=== PATIENT | male | born 1930 | race Caucasian/White ===

== ENCOUNTER 2019-07-28 04:52 | Emergency (ER) | payer MEDICARE, BC, OTHER ==
[2019-07-28] MEDS ORDERED: Sodium Chloride 0.9% 2.5 ML Syringe FLUSH PRN (04:53)
[2019-07-28] MEDS ORDERED: Sodium Chloride 0.9% 10 ML Syringe FLUSH PRN (04:53)
--- NOTE | 2019-07-28 05:10 | EDM.PDOC ---
ED HPI GENERAL MEDICAL PROBLEM - General Chief Complaint: Chest Pain Stated Complaint: CHEST PAIN Time Seen by Provider: 07/28/19 04:53 - History of Present Illness INITIAL COMMENTS - FREE TEXT/NARRATIVE: HISTORY AND PHYSICAL: History of present illness: The patient is an 88-year-old male with a history of insulin requiring diabetes who lives in [place] and is here traveling and says that he had a CABG 20 years ago and has had no cardiac intervention or evaluation since that time and says that he [facility] his [facility] but does not see a provider there and who presents this morning with complaints of midsternal chest pain that radiates to his back that woke him from sleep at 1 AM, approximally 4 hours ago. He said initially he was asleep and awoke him and it was an 8/10 and he describes it just as a "pain". He had no associated abdominal pain shortness of breath diaphoresis nausea vomiting or lightheadedness. He does not radiate to his arms or jaw .The patient took 7 or 8 baby aspirin at home but no other pain medications and he currently is chest pain-free. He tells me that he has had an episode of similar chest pain at least once a week for the last several months but did not seek treatment in either an emergency room or with his provider in the [facility]. He says that it would usually last about 1 hour to several hours and the only reason why he came in this morning was because he is getting tired of this happening but there is no difference in the location character or duration of the pain. The patient says that the pain will happen sometimes with activities and sometimes at rest and when he is sleeping. He says that he has had no pulmonary symptoms such as shortness of breath or upper respiratory infections and no recent fevers or chills. The patient has been eating and drinking normally and has no other systemic complaints. The patient does tell me on a separate conversations that he has a small bottle of pills which appeared to be nitroglycerin that his doctor gave him that he should take if he ever has chest pain. He says that these are at home in [place] and he never takes them. Review of systems: As per history of present illness and below otherwise all systems reviewed and negative. Past medical history: As per history of present illness and as reviewed below otherwise noncontributory. Surgical history: As per history of present illness and as reviewed below otherwise noncontributory. Social history: No reported history of drug or alcohol abuse. Family history: As per history of present illness and as reviewed below otherwise noncontributory. Physical exam: General: Well-developed well-nourished man who is nontoxic and vital signs are noted by me. He ambulated into the ED without distress HEENT: Atraumatic, normocephalic, pupils reactive, negative for conjunctival pallor or scleral icterus, mucous membranes moist, throat clear, neck supple, nontender, trachea midline. Lungs: Clear to auscultation, breath sounds equal bilaterally, chest nontender. Heart: S1S2, regular in rhythm no overt murmurs, negative for clicks, rubs, or JVD. Abdomen: Soft, nondistended, nontender. Negative for masses or hepatosplenomegaly. Negative for costovertebral tenderness. Pelvis: Stable nontender. Genitourinary: Deferred. Rectal: Deferred. Extremities: Atraumatic, negative for cords or calf pain. Neurovascular unremarkable. No pedal edema or leg asymmetry Neuro: Awake, alert, oriented. Cranial nerves II through XII unremarkable. Cerebellum unremarkable. Motor and sensory unremarkable throughout. Exam nonfocal. Diagnostics: EKG 2 chest x-ray CBC CMP INR troponin serum ketones UA with reflex Therapeutics: IV O2 monitor, patient took 7-8 baby aspirin prior to arrival, Nitropaste heparin per none STEMI protocol gentle IV fluids, insulin subcutaneous and insulin drip 0508: EKG was discussed with Dr. Kaur the cash processing specialist bridal consultant at [facility] and the EKG was photographed and sent to this provider for his review. He agrees that there is diffuse ST segment depression consistent with ischemia and/or LVH with strain and he states that as long as the patient is chest pain- free he would proceed with Nitropaste heparinization with bolus and drip and transfer to his location as the patient needs to be admitted and studied. We will continue to follow the patient's workup and arrange for transfer and I will discuss this case with the ER at [facility]. The patient and grandson at bedside are aware of these conversations. The patient is aware that he will be receiving heparin and he denies any blood in his stools dark tarry stools blood in his urine bleeding gums or nosebleeds. The patient of his blood sugar 749 and he says that he last checked his blood sugar yesterday and it was around 130. He is aware of the elevation as is the grandson at bedside and that we will give subcutaneous insulin and started insulin drip. His chemistry CO2 was 14 and his anion gap is 23 and serum ketones are small. I will also give some IV fluids 0550: Case was discussed with Dr. Dumont in the ER at [facility] and he agrees to start an insulin drip and we will now fly the patient as he has multiple levels of problems with gross elevation of his troponin and his blood sugars. Dr. Kaur was also notified of the troponin and agrees that he needs to be studied and will likely need medical management prior to this due to his renal insufficiency and DKA. Again the patient and grandson at bedside have been notified of these developments and the change in plan to now be flown to [facility] rather than go by EMS ground. We are currently evaluating flight status due to weather and we will keep the family and patient notified. A second EKG was performed which shows no changes from his prior and he is still chest pain-free. Critical care time excluding procedures:35min Impression: Chest pain, anginal equivalent with non-STEMI WI; DKA, renal insufficiency Definitive disposition and diagnosis as appropriate pending reevaluation and review of above. - Related Data Allergies Allergy/AdvReac Type Severity Reaction Status Date / Time No Known Allergies Allergy Verified 07/28/19 05:07 Home Meds: Home Meds Insulin NPH Hum/Reg Insulin Hm [Novolin 70-30 Flexpen] 30 units SQ BID 07/28/19 [History] ED ROS GENERAL - Review of Systems Review Of Systems: ROS reveals no pertinent complaints other than HPI. ED EXAM, GENERAL - Physical Exam Exam: See Below (See dictation) Course - Vital Signs Last Recorded V/S: Last Vital Signs Temp 36.1 C 07/28/19 04:52 Pulse 84 07/28/19 05:28 Resp 18 07/28/19 05:28 BP 125/58 L 07/28/19 05:28 Pulse Ox 97 07/28/19 05:28 - Orders/Labs/Meds Orders: Active Orders 24 hr Category Date Time Status Cardiac Monitoring [RC] . DIRECTED Care 07/28/19 04:53 Active Communication Order [RC] STAT Care 07/28/19 05:30 Active EKG Documentation Completion [RC] STAT Care 07/28/19 04:53 Active EKG Documentation Completion [RC] STAT Care 07/28/19 05:46 Active Oxygen Therapy, ED [RC] ASDIRECTED Care 07/28/19 04:53 Active Pulse Oximetry [RC] ASDIRECTED Care 07/28/19 04:53 Active UA RFX VICTOR MANUEL AND CULT IF INDIC [URIN] Stat Lab 07/28/19 05:45 Ordered Heparin Sod,Pork In 0.45% Nacl [Heparin-1/2Ns 25,000 Med 07/28/19 05:15 Active Units/500] 25,000 unit in 500 ml IV TITRATE Insulin Regular, Human [NovoLIN R] 100 unit Med 07/28/19 06:00 Active Sodium Chloride 0.9% [Normal Saline] 99 ml IV TITRATE Sodium Chloride 0.9% [Normal Saline] 1,000 ml Med 07/28/19 05:45 Active IV ASDIRECTED Sodium Chloride 0.9% [Saline Flush] Med 07/28/19 04:53 Active 10 ml FLUSH ASDIRECTED PRN Sodium Chloride 0.9% [Saline Flush] Med 07/28/19 04:53 Active 2.5 ml FLUSH ASDIRECTED PRN Saline Lock Insert [OM.PC] Stat Oth 07/28/19 04:53 Ordered Medication Orders Heparin Sodium/Sodium Chloride (Heparin-1/2ns 25,000 Units/500) 25,000 unit in 500 mls @ 16.8 mls/hr IV TITRATE AMAN; Protocol Last Admin: 07/28/19 05:26 Dose: 12 units/kg/hr, 16.8 mls/hr Sodium Chloride (Normal Saline) 1,000 mls @ 75 mls/hr IV ASDIRECTED AMAN Last Admin: 07/28/19 05:51 Dose: 75 mls/hr Insulin Human Regular 100 unit (/ Sodium Chloride) 100 mls @ 7 mls/hr IV TITRATE AMAN; Protocol Sodium Chloride (Saline Flush) 10 ml FLUSH ASDIRECTED PRN PRN Reason: Keep Vein Open Sodium Chloride (Saline Flush) 2.5 ml FLUSH ASDIRECTED PRN PRN Reason: Keep Vein Open Labs: Laboratory Tests 07/28/19 07/28/19 07/28/19 Range/Units 05:05 05:05 05:05 WBC 10.69 (4.0-11.0) K/uL RBC 4.10 L (4.50-5.90) M/uL Hgb 13.1 (13.0-17.0) g/dL Hct 39.2 (38.0-50.0) % MCV 95.6 (80.0-98.0) fL MCH 32.0 (27.0-32.0) pg MCHC 33.4 (31.0-37.0) g/dL RDW Std Deviation 46.2 (28.0-62.0) fl RDW Coeff of Jabier 13 (11.0-15.0) % Plt Count 250 (150-400) K/uL MPV 10.50 (7.40-12.00) fL Neut % (Auto) 77.5 (48.0-80.0) % Lymph % (Auto) 17.9 (16.0-40.0) % [place] % (Auto) 4.0 (0.0-15.0) % Eos % (Auto) 0.2 (0.0-7.0) % Baso % (Auto) 0.4 (0.0-1.5) % Neut # (Auto) 8.3 H (1.4-5.7) K/uL Lymph # (Auto) 1.9 (0.6-2.4) K/uL [place] # (Auto) 0.4 (0.0-0.8) K/uL Eos # (Auto) 0.0 (0.0-0.7) K/uL Baso # (Auto) 0.0 (0.0-0.1) K/uL Nucleated RBC % 0.0 /100WBC Nucleated RBCs # 0 K/uL INR 0.96 APTT (18.6-31.3) SEC Sodium 129 L (136-148) mmol/L Potassium 5.6 H (3.5-5.1) mmol/L Chloride 92 L (98-107) mmol/L Carbon Dioxide 14.1 L (21.0-32.0) mmol/L BUN 39 H (7.0-18.0) mg/dL Creatinine 2.3 H (0.8-1.3) mg/dL Est Cr Clr Drug Dosing TNP Estimated GFR (MDRD) 27.1 ml/min Glucose 749 H* (74-106) mg/dL Calcium 9.1 (8.5-10.1) mg/dL Total Bilirubin 1.0 (0.2-1.0) mg/dL AST 63 H (15-37) IU/L ALT 24 (14-63) IU/L Alkaline Phosphatase 131 H (46-116) U/L Troponin I 6.456 H* (0.000-0.056) ng/mL Total Protein 7.3 (6.4-8.2) g/dL Albumin 3.6 (3.4-5.0) g/dL Globulin 3.7 (2.6-4.0) g/dL Albumin/Globulin Ratio 1.0 (0.9-1.6) Ketones (NEG) 07/28/19 07/28/19 Range/Units 05:05 05:05 WBC (4.0-11.0) K/uL RBC (4.50-5.90) M/uL Hgb (13.0-17.0) g/dL Hct (38.0-50.0) % MCV (80.0-98.0) fL MCH (27.0-32.0) pg MCHC (31.0-37.0) g/dL RDW Std Deviation (28.0-62.0) fl RDW Coeff of Jabier (11.0-15.0) % Plt Count (150-400) K/uL MPV (7.40-12.00) fL Neut % (Auto) (48.0-80.0) % Lymph % (Auto) (16.0-40.0) % [place] % (Auto) (0.0-15.0) % Eos % (Auto) (0.0-7.0) % Baso % (Auto) (0.0-1.5) % Neut # (Auto) (1.4-5.7) K/uL Lymph # (Auto) (0.6-2.4) K/uL [place] # (Auto) (0.0-0.8) K/uL Eos # (Auto) (0.0-0.7) K/uL Baso # (Auto) (0.0-0.1) K/uL Nucleated RBC % /100WBC Nucleated RBCs # K/uL INR APTT 25.4 (18.6-31.3) SEC Sodium (136-148) mmol/L Potassium (3.5-5.1) mmol/L Chloride (98-107) mmol/L Carbon Dioxide (21.0-32.0) mmol/L BUN (7.0-18.0) mg/dL Creatinine (0.8-1.3) mg/dL Est Cr Clr Drug Dosing Estimated GFR (MDRD) ml/min Glucose (74-106) mg/dL Calcium (8.5-10.1) mg/dL Total Bilirubin (0.2-1.0) mg/dL AST (15-37) IU/L ALT (14-63) IU/L Alkaline Phosphatase (46-116) U/L Troponin I (0.000-0.056) ng/mL Total Protein (6.4-8.2) g/dL Albumin (3.4-5.0) g/dL Globulin (2.6-4.0) g/dL Albumin/Globulin Ratio (0.9-1.6) Ketones SMALL H (NEG) Meds: Medications Generic Name Dose Route Start Last Admin Trade Name Freq PRN Reason Stop Dose Admin Heparin Sodium/Sodium Chloride 25,000 unit in 500 mls @ 16.8 mls/hr 07/28/19 05:15 07/28/19 05:26 Heparin-1/2ns 25,000 Units/500 IV 12 units/kg/hr TITRATE AMAN 16.8 mls/hr Administration Protocol 12 UNITS/KG/HR Sodium Chloride 1,000 mls @ 75 mls/hr 07/28/19 05:45 07/28/19 05:51 Normal Saline IV 75 mls/hr ASDIRECTED AMAN Administration Insulin Human Regular 100 unit 100 mls @ 7 mls/hr 07/28/19 06:00 / Sodium Chloride IV TITRATE AMAN Protocol 7 UNIT/HR Sodium Chloride 10 ml 07/28/19 04:53 Saline Flush FLUSH ASDIRECTED PRN Keep Vein Open Sodium Chloride 2.5 ml 07/28/19 04:53 Saline Flush FLUSH ASDIRECTED PRN Keep Vein Open Discontinued Medications Generic Name Dose Route Start Last Admin Trade Name Freq PRN Reason Stop Dose Admin Heparin Sodium (Porcine) 4,200 units 07/28/19 05:14 07/28/19 05:26 Heparin Sodium IVPUSH 07/28/19 05:15 4,200 units ONETIME ONE Administration Insulin Human Regular 15 unit 07/28/19 05:42 07/28/19 05:54 Novolin R SUBCUT 07/28/19 05:43 15 units ONETIME ONE Administration Protocol Nitroglycerin 1 gm 07/28/19 05:14 07/28/19 05:26 Nitro-Bid 2% TOP 07/28/19 05:15 1 gm ONETIME ONE Administration Departure - Departure Time of Disposition: 06:01 Disposition: DC/Tfer to Acute Hospital 02 Condition: Good Clinical Impression: Non-STEMI (non-ST elevated myocardial infarction) DKA (diabetic ketoacidoses) Qualifiers: Diabetes mellitus type: type 1 Diabetes mellitus complication detail: without coma Qualified Code(s): E10.10 - Type 1 diabetes mellitus with ketoacidosis without coma - Discharge Information Referrals: PCP,None [Primary Care Provider] - Forms: ED Department Discharge - My Orders Last 24 Hours: My Active Orders 07/28/19 04:53 Cardiac Monitoring [RC] . DIRECTED EKG Documentation Completion [RC] STAT Oxygen Therapy, ED [RC] ASDIRECTED Pulse Oximetry [RC] ASDIRECTED Sodium Chloride 0.9% [Saline Flush] 10 ml FLUSH ASDIRECTED PRN Sodium Chloride 0.9% [Saline Flush] 2.5 ml FLUSH ASDIRECTED PRN Saline Lock Insert [OM.PC] Stat 07/28/19 05:15 Heparin Sod,Pork In 0.45% Nacl [Heparin-1/2Ns 25,000 Units/500] 25,000 unit in 500 ml IV TITRATE 07/28/19 05:30 Communication Order [RC] STAT 07/28/19 05:45 UA RFX VICTOR MANUEL AND CULT IF INDIC [URIN] Stat Sodium Chloride 0.9% [Normal Saline] 1,000 ml IV ASDIRECTED 07/28/19 05:46 EKG Documentation Completion [RC] STAT 07/28/19 06:00 Insulin Regular, Human [NovoLIN R] 100 unit Sodium Chloride 0.9% [Normal Saline] 99 ml IV TITRATE - Assessment/Plan Last 24 Hours: My Active Orders 07/28/19 04:53 Cardiac Monitoring [RC] . DIRECTED EKG Documentation Completion [RC] STAT Oxygen Therapy, ED [RC] ASDIRECTED Pulse Oximetry [RC] ASDIRECTED Sodium Chloride 0.9% [Saline Flush] 10 ml FLUSH ASDIRECTED PRN Sodium Chloride 0.9% [Saline Flush] 2.5 ml FLUSH ASDIRECTED PRN Saline Lock Insert [OM.PC] Stat 07/28/19 05:15 Heparin Sod,Pork In 0.45% Nacl [Heparin-1/2Ns 25,000 Units/500] 25,000 unit in 500 ml IV TITRATE 07/28/19 05:30 Communication Order [RC] STAT 07/28/19 05:45 UA RFX VICTOR MANUEL AND CULT IF INDIC [URIN] Stat Sodium Chloride 0.9% [Normal Saline] 1,000 ml IV ASDIRECTED 07/28/19 05:46 EKG Documentation Completion [RC] STAT 07/28/19 06:00 Insulin Regular, Human [NovoLIN R] 100 unit Sodium Chloride 0.9% [Normal Saline] 99 ml IV TITRATE
[2019-07-28] MEDS ORDERED: Nitroglycerin 2% Oint 1 GM UD Packet TOP ONE (05:14)
[2019-07-28] MEDS ORDERED: Heparin Sodium 5,000 Units/ML Vial IVPUSH ONE (05:14)
[2019-07-28] MEDS ORDERED: Heparin Sod,Pork In 0.45% Nacl 25,000 UNIT/500 ML IV.SOLN IV SCH (05:15)
--- NOTE | 2019-07-28 05:29 | CR ---
INDICATION: Pain, shortness of breath TECHNIQUE: Chest 1 view. COMPARISON: None FINDINGS: Cardiovascular and mediastinum: Heart size and vasculature are normal in caliber and appearance. Mediastinum is within normal limits. Sternotomy wires noted. Lungs and pleural space: Probable atelectasis versus fibrosis left lower lobe. No sign of infiltrate or mass. No sign of pleural effusion. No pneumothorax. Bones and soft tissues: No significant findings. IMPRESSION: Probable atelectasis versus fibrosis left lower lobe. Dictated by David Dunn MD @ 07/28/2019 5:27:28 AM Dictated by: David Dunn MD @ 07/28/2019 05:27:35 (Electronically Signed)
[2019-07-28 05:35] LABS: BLOOD UREA NITROGEN,BUN 39 mg/dL (7.0-18.0); CARBON DIOXIDE,CO2 14.1 mmol/L (21.0-32.0); CHLORIDE,CL 92 mmol/L (98-107); POTASSIUM,K 5.6 mmol/L (3.5-5.1); SODIUM,NA 129 mmol/L (136-148)
[2019-07-28 05:37] LABS: GLUCOSE RANDOM 749 mg/dL (74-106)
[2019-07-28] MEDS ORDERED: Insulin Regular, Human 100 Units/ML 10 ML Vial SUBCUT ONE (05:42)
[2019-07-28] MEDS ORDERED: Sodium Chloride 0.9% 1,000 ML IV SCH (05:45)
== END 2019-07-28 08:45 ==
LOC: MW.ED 04:52
DX: I21.4 Non-ST elevation (NSTEMI) myocardial infarction (principal); E10.10 Type 1 diabetes mellitus with ketoacidosis without coma; N28.9 Disorder of kidney and ureter, unspecified; Z95.5 Presence of coronary angioplasty implant and graft; Z79.4 Long term (current) use of insulin
CPT/HCPCS: 36415; 71045; 80053; 81001; 82009; 82962; 84484; 85025; 85610; 85730; 93005; 96360; 96361; 96365; 96366; 96376; 99285; A9270; J1644; J1815; J7030; J7040

== ENCOUNTER 2019-10-08 05:48 | Emergency (ER) | payer BC, MEDICARE, OTHER ==
[2019-10-08] MEDS ORDERED: Sodium Chloride 0.9% 10 ML Syringe FLUSH PRN (05:55)
[2019-10-08] MEDS ORDERED: Sodium Chloride 0.9% 2.5 ML Syringe FLUSH PRN (05:55)
[2019-10-08] MEDS ORDERED: Insulin Regular, Human 100 Units/ML 10 ML Vial SUBCUT ONE (06:08)
[2019-10-08] MEDS ORDERED: Aspirin 81 MG Tab.Chew PO ONE (06:10)
--- NOTE | 2019-10-08 06:12 | EDM.PDOC ---
ED HPI GENERAL MEDICAL PROBLEM - General Chief Complaint: Chest Pain Stated Complaint: BACK AND CHEST PAIN Time Seen by Provider: 10/08/19 05:49 - History of Present Illness INITIAL COMMENTS - FREE TEXT/NARRATIVE: HISTORY AND PHYSICAL: History of present illness: The patient is an 88-year-old male who is known to me as I had to transfer him the beginning of July for an NSTEMI NH at [facility] where he received 1 coronary stent due to blockages and evaluation and 2 at that visit also had a grossly elevated blood sugar in the 700s due to poor diabetic management and who presents this morning stating that at 3:00 this morning, 3 hours ago, he was sleeping and woke up with mid sternal chest pain that radiated to his back. He said it lasted about an hour and then went away on his own and he did not take any medications to relieve it. He says that he does have nitroglycerin sublingual but he could not find it and he did not take any. He says that since his stent in July he has not used nitroglycerin for any chest discomfort but he has had episodes chest discomfort on and off but. He says that his diabetes has not been under good control and he "could be doing much better" and that his fasting blood sugar has been in the 100 to 200s. The patient was also seen a second time on August 12 here for elevated blood sugar and diabetic concerns and after he was initially evaluated he signed out AGAINST MEDICAL ADVICE as he did not want to have IV insulin or an admission. The patient says he [facility] and that he is still living in [place] but has been up here since July. It is unclear if he has had any good follow-up since his transfer with a commodity loan clerk or with primary care. The patient says that yesterday he had a normal day without any abdominal pain vomiting or diarrhea and has no upper respiratory symptoms or shortness of breath or cough. He's had no fevers or chills and is eating normally. He says that he has been very thirsty of late and feels like his mouth is been very dry and he is not sure if that is just been going on the last 24 hours or longer. He is not the best historian and does present here with his grandson. The patient says that he did not come in when he was having the chest pain because it got better and then he thought he should come in and get it checked out this morning. Currently in the ED he is not having any chest or back pain and no shortness of breath and has no complaints and says he is doing just fine. He is not aware of his fasting blood sugar and here we checked it quickly and it was over 500. He says he has had normal bowel movements and normal stools. He did not take any aspirin or any morning medications. 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 When I spoke with the grandson independently he says that the patient has actually relocated here and is not going back to [place] and to his knowledge the patient has not followed up with either commodity loan clerk or primary care since he has been staying here prior to his July visit here. Review of systems: As per history of present illness and below otherwise all systems reviewed and negative. Past medical history: As per history of present illness and as reviewed below otherwise noncontributory. Surgical history: As per history of present illness and as reviewed below otherwise noncontributory. Social history: No reported history of drug or alcohol abuse. Family history: As per history of present illness and as reviewed below otherwise noncontributory. Physical exam: General: Well-developed well-nourished man who is nontoxic and ambulatory in the ED. Vital signs are noted by me. He is communicative and interactive and he does have a smell of ketones on his breath. HEENT: Atraumatic, normocephalic, pupils reactive, negative for conjunctival pallor or scleral icterus, mucous membranes very dry, throat clear, neck supple , nontender, trachea midline. Lungs: Clear to auscultation, breath sounds equal bilaterally, chest nontender. No wheezing or stridor or work of breathing there are no rales appreciated Heart: S1S2, regular, negative for clicks, rubs, or JVD. Abdomen: Soft, nondistended, nontender. Negative for masses or hepatosplenomegaly. Negative for costovertebral tenderness. Pelvis: Stable nontender. Genitourinary: Deferred. Rectal: Deferred. Extremities: Atraumatic, negative for cords or calf pain. Neurovascular unremarkable. No pedal edema or leg asymmetry Neuro: Awake, alert, oriented. Cranial nerves II through XII unremarkable. Cerebellum unremarkable. Motor and sensory unremarkable throughout. Exam nonfocal. Diagnostics: EKG, which was compared to his prior performed on July 28, CBC CMP UA with reflex INR troponin venous blood gas serum ketones hemoglobin A1c chest x-ray, ABG Therapeutics: IV O2 monitor IV fluids aspirin insulin Zofran insulin drip NTP lovenox After the aspirin was administered the patient did have an episode of vomiting. Will give him Zofran and continue to monitor these symptoms. 0702: After all testing results were obtained these were discussed with the patient and family at bedside and the patient is not happy about being transferred but understands the need for the transfer and the gravity of his medical condition. I discussed this case with Dr. Dumont in the ED at [facility] who accepts the patient and agrees ground transportation as appropriate. We will also treat him as a NSTEMI and give him Lovenox and Nitropaste. Critical Care time excluding procedures: 31min Impression: DKA history of poorly controlled diabetes NSTEMI with history of an NSTEMI with stent in July Poorly controlled diabetes Definitive disposition and diagnosis as appropriate pending reevaluation and review of above. - Related Data Allergies Allergy/AdvReac Type Severity Reaction Status Date / Time No Known Allergies Allergy Verified 10/08/19 06:12 Home Meds: Home Meds Insulin NPH Hum/Reg Insulin Hm [Novolin 70-30 Flexpen] 30 units SQ DAILY [History] Past Medical History - Past Health History Medical/Surgical History: Denies Medical/Surgical History HEENT History: Reports: None Cardiovascular History: Reports: Stents Respiratory History: Reports: None Gastrointestinal History: Reports: None Genitourinary History: Reports: None Musculoskeletal History: Reports: None Neurological History: Reports: None Psychiatric History: Reports: None Endocrine/Metabolic History: Reports: Diabetes, Type II Insulin Pump Model and Hand Hose Cutter: None Hematologic History: Reports: None Immunologic History: Reports: None Oncologic (Cancer) History: Reports: None Dermatologic History: Reports: None - Infectious Disease History Infectious Disease History: Reports: None - Past Surgical History Head Surgeries/Procedures: Reports: None Cardiovascular Surgical History: Reports: Coronary Artery Bypass, Coronary Artery Stent Social & Family History - Family History Family Medical History: Noncontributory ED ROS GENERAL - Review of Systems Review Of Systems: Comprehensive ROS is negative, except as noted in HPI. ED EXAM, GENERAL - Physical Exam Exam: See Below (see dictation) Course - Vital Signs Last Recorded V/S: Last Vital Signs Temp 36.7 C 10/08/19 07:04 Pulse 77 10/08/19 07:04 Resp 18 10/08/19 07:04 BP 110/50 L 10/08/19 07:04 Pulse Ox 96 10/08/19 07:04 - Orders/Labs/Meds Orders: Active Orders 24 hr Category Date Time Status Blood Glucose Check, Bedside [] ONETIME Care 10/08/19 05:55 Active Cardiac Monitoring [RC] . DIRECTED Care 10/08/19 05:55 Active EKG Documentation Completion [RC] STAT Care 10/08/19 05:55 Active Oxygen Therapy, ED [RC] ASDIRECTED Care 10/08/19 05:55 Active Pulse Oximetry [RC] ASDIRECTED Care 10/08/19 05:55 Active UA RFX VICTOR MANUEL AND CULT IF INDIC [URIN] Stat Lab 10/08/19 05:55 Ordered Insulin Regular, Human [NovoLIN R] 100 unit Med 10/08/19 07:00 Active Sodium Chloride 0.9% [Normal Saline] 99 ml IV TITRATE Sodium Chloride 0.9% [Normal Saline] 1,000 ml Med 10/08/19 06:15 Active IV ASDIRECTED Sodium Chloride 0.9% [Saline Flush] Med 10/08/19 05:55 Active 10 ml FLUSH ASDIRECTED PRN Sodium Chloride 0.9% [Saline Flush] Med 10/08/19 05:55 Active 2.5 ml FLUSH ASDIRECTED PRN Saline Lock Insert [OM.PC] Stat Oth 10/08/19 05:55 Ordered Medication Orders Sodium Chloride (Normal Saline) 1,000 mls @ 125 mls/hr IV ASDIRECTED AMAN Last Admin: 10/08/19 06:23 Dose: 999 mls/hr Insulin Human Regular 100 unit (/ Sodium Chloride) 100 mls @ 7.18 mls/hr IV TITRATE AMAN; Protocol Sodium Chloride (Saline Flush) 10 ml FLUSH ASDIRECTED PRN PRN Reason: Keep Vein Open Last Admin: 10/08/19 06:28 Dose: 10 ml Sodium Chloride (Saline Flush) 2.5 ml FLUSH ASDIRECTED PRN PRN Reason: Keep Vein Open Last Admin: 10/08/19 06:28 Dose: 2.5 ml Labs: Laboratory Tests 10/08/19 10/08/19 10/08/19 Range/Units 06:14 06:14 06:14 WBC 8.70 (4.0-11.0) K/uL RBC 3.52 L (4.50-5.90) M/uL Hgb 11.0 L (13.0-17.0) g/dL Hct 36.6 L (38.0-50.0) % MCV 104.0 H (80.0-98.0) fL MCH 31.3 (27.0-32.0) pg MCHC 30.1 L (31.0-37.0) g/dL RDW Std Deviation 51.8 (28.0-62.0) fl RDW Coeff of Jabier 14 (11.0-15.0) % Plt Count 234 (150-400) K/uL MPV 11.00 (7.40-12.00) fL Neut % (Auto) 86.1 H (48.0-80.0) % Lymph % (Auto) 10.3 L (16.0-40.0) % Polk % (Auto) 3.3 (0.0-15.0) % Eos % (Auto) 0.0 (0.0-7.0) % Baso % (Auto) 0.3 (0.0-1.5) % Neut # (Auto) 7.5 H (1.4-5.7) K/uL Lymph # (Auto) 0.9 (0.6-2.4) K/uL Polk # (Auto) 0.3 (0.0-0.8) K/uL Eos # (Auto) 0.0 (0.0-0.7) K/uL Baso # (Auto) 0.0 (0.0-0.1) K/uL Nucleated RBC % 0.0 /100WBC Nucleated RBCs # 0 K/uL INR 0.99 ABG pH (7.35-7.45) ABG pCO2 (35-45) mmHG ABG pO2 (75-100) mmHG ABG HCO3 (22-26) mEq/L ABG Total CO2 ABG Base Excess (-2.0-2.0) VBG pH (7.31-7.41) VBG pCO2 (35-45) mmHG VBG pO2 (30-40) mmHG VBG HCO3 (22-30) mEq/L VBG Total CO2 (41-51) mmol/L VBG Base Excess (-3.0-3.0) Sodium 125 L (136-148) mmol/L Potassium 6.5 H (3.5-5.1) mmol/L Chloride 89 L (98-107) mmol/L Carbon Dioxide 11.7 L (21.0-32.0) mmol/L BUN 37 H (7.0-18.0) mg/dL Creatinine 2.4 H (0.8-1.3) mg/dL Est Cr Clr Drug Dosing TNP Estimated GFR (MDRD) 25.8 ml/min Glucose 960 H* (74-106) mg/dL Hemoglobin A1c (4.5-6.2) % Calcium 9.2 (8.5-10.1) mg/dL Total Bilirubin 0.8 (0.2-1.0) mg/dL AST 30 (15-37) IU/L ALT 27 (14-63) IU/L Alkaline Phosphatase 186 H (46-116) U/L Troponin I 1.030 H* (0.000-0.056) ng/mL Total Protein 7.3 (6.4-8.2) g/dL Albumin 3.4 (3.4-5.0) g/dL Globulin 3.9 (2.6-4.0) g/dL Albumin/Globulin Ratio 0.9 (0.9-1.6) Ketones (NEG) 10/08/19 10/08/19 10/08/19 Range/Units 06:14 06:14 06:14 WBC (4.0-11.0) K/uL RBC (4.50-5.90) M/uL Hgb (13.0-17.0) g/dL Hct (38.0-50.0) % MCV (80.0-98.0) fL MCH (27.0-32.0) pg MCHC (31.0-37.0) g/dL RDW Std Deviation (28.0-62.0) fl RDW Coeff of Jabier (11.0-15.0) % Plt Count (150-400) K/uL MPV (7.40-12.00) fL Neut % (Auto) (48.0-80.0) % Lymph % (Auto) (16.0-40.0) % Polk % (Auto) (0.0-15.0) % Eos % (Auto) (0.0-7.0) % Baso % (Auto) (0.0-1.5) % Neut # (Auto) (1.4-5.7) K/uL Lymph # (Auto) (0.6-2.4) K/uL Polk # (Auto) (0.0-0.8) K/uL Eos # (Auto) (0.0-0.7) K/uL Baso # (Auto) (0.0-0.1) K/uL Nucleated RBC % /100WBC Nucleated RBCs # K/uL INR ABG pH (7.35-7.45) ABG pCO2 (35-45) mmHG ABG pO2 (75-100) mmHG ABG HCO3 (22-26) mEq/L ABG Total CO2 ABG Base Excess (-2.0-2.0) VBG pH 7.23 L (7.31-7.41) VBG pCO2 31 L (35-45) mmHG VBG pO2 32 (30-40) mmHG VBG HCO3 13 L (22-30) mEq/L VBG Total CO2 12 L (41-51) mmol/L VBG Base Excess -13.6 L (-3.0-3.0) Sodium (136-148) mmol/L Potassium (3.5-5.1) mmol/L Chloride (98-107) mmol/L Carbon Dioxide (21.0-32.0) mmol/L BUN (7.0-18.0) mg/dL Creatinine (0.8-1.3) mg/dL Est Cr Clr Drug Dosing Estimated GFR (MDRD) ml/min Glucose (74-106) mg/dL Hemoglobin A1c 11.7 H (4.5-6.2) % Calcium (8.5-10.1) mg/dL Total Bilirubin (0.2-1.0) mg/dL AST (15-37) IU/L ALT (14-63) IU/L Alkaline Phosphatase (46-116) U/L Troponin I (0.000-0.056) ng/mL Total Protein (6.4-8.2) g/dL Albumin (3.4-5.0) g/dL Globulin (2.6-4.0) g/dL Albumin/Globulin Ratio (0.9-1.6) Ketones SMALL H (NEG) 10/08/19 Range/Units 06:55 WBC (4.0-11.0) K/uL RBC (4.50-5.90) M/uL Hgb (13.0-17.0) g/dL Hct (38.0-50.0) % MCV (80.0-98.0) fL MCH (27.0-32.0) pg MCHC (31.0-37.0) g/dL RDW Std Deviation (28.0-62.0) fl RDW Coeff of Jabier (11.0-15.0) % Plt Count (150-400) K/uL MPV (7.40-12.00) fL Neut % (Auto) (48.0-80.0) % Lymph % (Auto) (16.0-40.0) % Polk % (Auto) (0.0-15.0) % Eos % (Auto) (0.0-7.0) % Baso % (Auto) (0.0-1.5) % Neut # (Auto) (1.4-5.7) K/uL Lymph # (Auto) (0.6-2.4) K/uL Polk # (Auto) (0.0-0.8) K/uL Eos # (Auto) (0.0-0.7) K/uL Baso # (Auto) (0.0-0.1) K/uL Nucleated RBC % /100WBC Nucleated RBCs # K/uL INR ABG pH 7.190 L* (7.35-7.45) ABG pCO2 27 L (35-45) mmHG ABG pO2 84 (75-100) mmHG ABG HCO3 10 L (22-26) mEq/L ABG Total CO2 10.0 ABG Base Excess -16.4 L (-2.0-2.0) VBG pH (7.31-7.41) VBG pCO2 (35-45) mmHG VBG pO2 (30-40) mmHG VBG HCO3 (22-30) mEq/L VBG Total CO2 (41-51) mmol/L VBG Base Excess (-3.0-3.0) Sodium (136-148) mmol/L Potassium (3.5-5.1) mmol/L Chloride (98-107) mmol/L Carbon Dioxide (21.0-32.0) mmol/L BUN (7.0-18.0) mg/dL Creatinine (0.8-1.3) mg/dL Est Cr Clr Drug Dosing Estimated GFR (MDRD) ml/min Glucose (74-106) mg/dL Hemoglobin A1c (4.5-6.2) % Calcium (8.5-10.1) mg/dL Total Bilirubin (0.2-1.0) mg/dL AST (15-37) IU/L ALT (14-63) IU/L Alkaline Phosphatase (46-116) U/L Troponin I (0.000-0.056) ng/mL Total Protein (6.4-8.2) g/dL Albumin (3.4-5.0) g/dL Globulin (2.6-4.0) g/dL Albumin/Globulin Ratio (0.9-1.6) Ketones (NEG) Meds: Medications Generic Name Dose Route Start Last Admin Trade Name Freq PRN Reason Stop Dose Admin Sodium Chloride 1,000 mls @ 125 mls/hr 10/08/19 06:15 10/08/19 06:23 Normal Saline IV 999 mls/hr ASDIRECTED AMAN Administration Insulin Human Regular 100 unit 100 mls @ 7.18 mls/hr 10/08/19 07:00 / Sodium Chloride IV TITRATE AMAN Protocol 0.1 UNIT/KG/HR Sodium Chloride 10 ml 10/08/19 05:55 10/08/19 06:28 Saline Flush FLUSH 10 ml ASDIRECTED PRN Administration Keep Vein Open Sodium Chloride 2.5 ml 10/08/19 05:55 10/08/19 06:28 Saline Flush FLUSH 2.5 ml ASDIRECTED PRN Administration Keep Vein Open Discontinued Medications Generic Name Dose Route Start Last Admin Trade Name Freq PRN Reason Stop Dose Admin Aspirin 324 mg 10/08/19 06:10 10/08/19 06:26 Aspirin PO 10/08/19 06:11 324 mg ONETIME ONE Administration Enoxaparin Sodium 70 mg 10/08/19 06:55 Lovenox SUBCUT 10/08/19 06:56 ONETIME ONE Insulin Human Regular 15 unit 10/08/19 06:08 10/08/19 06:27 Novolin R SUBCUT 10/08/19 06:09 15 units ONETIME ONE Administration Protocol Nitroglycerin 0.5 gm 10/08/19 06:55 Nitro-Bid 2% TOP 10/08/19 06:56 ONETIME ONE Ondansetron HCl 4 mg 10/08/19 06:36 10/08/19 06:38 Zofran IVPUSH 10/08/19 06:37 4 mg ONETIME ONE Administration Ondansetron HCl Confirm 10/08/19 06:36 10/08/19 06:41 Zofran Administered 10/08/19 06:37 Not Given Dose 4 mg .ROUTE .STK-MED ONE Departure - Departure Time of Disposition: 07:10 Disposition: DC/Tfer to Acute Hospital 02 Condition: Fair Clinical Impression: NSTEMI (non-ST elevated myocardial infarction), Poorly controlled diabetes mellitus Diabetic ketoacidosis Qualifiers: Diabetes mellitus type: type 1 Diabetes mellitus complication detail: without coma Qualified Code(s): E10.10 - Type 1 diabetes mellitus with ketoacidosis without coma - Discharge Information Referrals: PCP,None [Primary Care Provider] - Forms: ED Department Discharge Sepsis Event Note - Evaluation Sepsis Screening Result: No Definite Risk - Focused Exam Vital Signs: Vital Signs Temp Pulse Resp BP Pulse Ox 10/08/19 07:04 36.7 C 77 18 110/50 L 96 10/08/19 06:35 86 22 H 106/52 L 99 10/08/19 05:55 36.6 C 90 20 123/67 96 Date Exam was Performed: 10/08/19 Time Exam was Performed: 07:08 - My Orders Last 24 Hours: My Active Orders 10/08/19 05:55 Blood Glucose Check, Bedside [RC] ONETIME Cardiac Monitoring [RC] . DIRECTED EKG Documentation Completion [RC] STAT Oxygen Therapy, ED [RC] ASDIRECTED Pulse Oximetry [RC] ASDIRECTED UA RFX VICTOR MANUEL AND CULT IF INDIC [URIN] Stat Sodium Chloride 0.9% [Saline Flush] 10 ml FLUSH ASDIRECTED PRN Sodium Chloride 0.9% [Saline Flush] 2.5 ml FLUSH ASDIRECTED PRN Saline Lock Insert [OM.PC] Stat 10/08/19 06:15 Sodium Chloride 0.9% [Normal Saline] 1,000 ml IV ASDIRECTED 10/08/19 07:00 Insulin Regular, Human [NovoLIN R] 100 unit Sodium Chloride 0.9% [Normal Saline] 99 ml IV TITRATE - Assessment/Plan Last 24 Hours: My Active Orders 10/08/19 05:55 Blood Glucose Check, Bedside [RC] ONETIME Cardiac Monitoring [RC] . DIRECTED EKG Documentation Completion [RC] STAT Oxygen Therapy, ED [RC] ASDIRECTED Pulse Oximetry [RC] ASDIRECTED UA RFX VICTOR MANUEL AND CULT IF INDIC [URIN] Stat Sodium Chloride 0.9% [Saline Flush] 10 ml FLUSH ASDIRECTED PRN Sodium Chloride 0.9% [Saline Flush] 2.5 ml FLUSH ASDIRECTED PRN Saline Lock Insert [OM.PC] Stat 10/08/19 06:15 Sodium Chloride 0.9% [Normal Saline] 1,000 ml IV ASDIRECTED 10/08/19 07:00 Insulin Regular, Human [NovoLIN R] 100 unit Sodium Chloride 0.9% [Normal Saline] 99 ml IV TITRATE
[2019-10-08] MEDS ORDERED: Sodium Chloride 0.9% 1,000 ML IV SCH ×3 (06:15→08:15)
--- NOTE | 2019-10-08 06:33 | CR ---
INDICATION: Chest pain TECHNIQUE: Frontal view of the chest. COMPARISON: Single view chest 07/28/2019 FINDINGS/IMPRESSION: 1. Again demonstrated are coarse reticular interstitial opacities more pronounced in the lung bases, likely reflecting pulmonary fibrosis. 2. There is no airspace consolidation or pulmonary vascular congestion. There is no sizable pleural effusion or pneumothorax. 3. The cardiomediastinal silhouette is stable. Sternotomy wires and mediastinal clips are again noted. Dictated by Darian Bailey MD @ Oct 08 2019 6:32AM Signed by Dr. Darian Bailey @ Oct 08 2019 6:32AM
[2019-10-08] MEDS ORDERED: Ondansetron 4 MG/2 ML SDV ONE (06:36)
[2019-10-08] MEDS ORDERED: Ondansetron 4 MG/2 ML SDV IVPUSH ONE (06:36)
[2019-10-08 06:40] LABS: HEMOGLOBIN A1C 11.7 % (4.5-6.2)
[2019-10-08 06:51] LABS: BLOOD UREA NITROGEN,BUN 37 mg/dL (7.0-18.0); CARBON DIOXIDE,CO2 11.7 mmol/L (21.0-32.0); CHLORIDE,CL 89 mmol/L (98-107); POTASSIUM,K 6.5 mmol/L (3.5-5.1); SODIUM,NA 125 mmol/L (136-148)
[2019-10-08] MEDS ORDERED: Enoxaparin 100 MG/1 ML Syringe SUBCUT ONE (06:55)
[2019-10-08] MEDS ORDERED: Nitroglycerin 2% Oint 1 GM UD Packet TOP ONE (06:55)
[2019-10-08 07:01] LABS: GLUCOSE RANDOM 960 mg/dL (74-106)
[2019-10-08] MEDS ORDERED: Insulin Regular, Human 100 Units/ML 10 ML Vial IVPUSH ONE (07:21)
[2019-10-08] MEDS ORDERED: Calcium Gluconate 10% 1 GM/10 ML SDV IVPUSH ONE (07:22)
[2019-10-08] MEDS ORDERED: Sodium Bicarbonate 8.4% 50 MEQ/50 ML Syringe IVPUSH ONE ×2 (07:23)
== END 2019-10-08 08:25 ==
LOC: MW.ED 05:48
DX: I21.4 Non-ST elevation (NSTEMI) myocardial infarction (principal); E10.10 Type 1 diabetes mellitus with ketoacidosis without coma; Z95.5 Presence of coronary angioplasty implant and graft; Z79.4 Long term (current) use of insulin; Z95.1 Presence of aortocoronary bypass graft
CPT/HCPCS: 36600; 71045; 80053; 82009; 82803; 82962; 83036; 84484; 85025; 85610; 93005; 96361; 96365; 96372; 96374; 96375; 99285; A9270; J0610; J1650; J1815; J2405; J7030

== ENCOUNTER 2019-10-16 22:27 | Emergency (ER) | payer OTHER ==
[2019-10-16] MEDS ORDERED: Sodium Chloride 0.9% 1,000 ML IV ONE (22:33)
--- NOTE | 2019-10-16 23:05 | EDM.PDOC ---
ED HPI GENERAL MEDICAL PROBLEM - General Chief Complaint: Diabetic Complaint Stated Complaint: CAME BY AMBULANCE Time Seen by Provider: 10/16/19 23:00 Source of Information: Reports: Patient, Family History Limitations: Reports: No Limitations - History of Present Illness INITIAL COMMENTS - FREE TEXT/NARRATIVE: This is an 88-year-old male 8-year-old male presents to the emergency room having difficulty breathing and problem with his glucose. He states his glucoses were high as 500 at home. Family also states that his lower legs show swelling and he is having trouble breathing. Patient denies fever chills or chest pain at this time. Patient recently was discharged for cardiac cath at another facility. Patient will also only discharge with limited medications. Patient was instructed to double up on his Lasix but the medications were not available at this time. Patient arr in shortness of breath. Does not seem to be having a lot of difficulty. Does have pedal edema in his lower extremities. Onset: Gradual Onset Date: 10/15/19 Duration: Day(s):, Getting Worse Location: Reports: Other (Deep breathing) Quality: Reports: Pressure Severity: Moderate Improves with: Reports: None Worsens with: Reports: None Associated Symptoms: Reports: Shortness of Breath - Related Data Allergies Allergy/AdvReac Type Severity Reaction Status Date / Time No Known Allergies Allergy Verified 10/16/19 22:53 Home Meds: Home Meds . 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 Hematologic History: Reports: None Immunologic History: Reports: None Oncologic (Cancer) History: Reports: None Dermatologic History: Reports: None - Infectious Disease History Infectious Disease History: Reports: None - Past Surgical History Head Surgeries/Procedures: Reports: None Cardiovascular Surgical History: Reports: Coronary Artery Bypass, Coronary Artery Stent Social & Family History - Family History Family Medical History: Noncontributory ED ROS GENERAL - Review of Systems Review Of Systems: See Below Constitutional: Reports: Weakness HEENT: Reports: No Symptoms Respiratory: Reports: Shortness of Breath Cardiovascular: Reports: Edema Endocrine: Reports: No Symptoms, Fatigue GI/Abdominal: Reports: No Symptoms : Reports: No Symptoms Musculoskeletal: Reports: No Symptoms Skin: Reports: No Symptoms Neurological: Reports: No Symptoms Psychiatric: Reports: No Symptoms Hematologic/Lymphatic: Reports: No Symptoms Immunologic: Reports: No Symptoms ED EXAM GENERAL NO PERIP PULSE - Physical Exam Exam: See Below Exam Limited By: No Limitations General Appearance: Alert, WD/WN, Moderate Distress Eye Exam: Bilateral Eye: Normal Inspection Ears: Normal External Exam, Normal Canal, Hearing Grossly Normal, Normal TMs Nose: Normal Inspection, Normal Mucosa Throat/Mouth: Normal Inspection, Normal Lips, Normal Teeth Head: Atraumatic, Normocephalic Neck: Normal Inspection, Supple, Non-Tender, Full Range of Motion Respiratory/Chest: No Respiratory Distress, Decreased Breath Sounds, Rhonchi. No: Accessory Muscle Use Cardiovascular: Normal Peripheral Pulses, Other (Right bundle branch block) GI/Abdominal: Normal Bowel Sounds, Soft, Non-Tender Rectal (Males) Exam: Deferred Back Exam: Normal Inspection, Full Range of Motion Extremities: Normal Inspection, Normal Range of Motion, Non-Tender, Pedal Edema Neurological: Alert, Oriented, CN II-XII Intact, Normal Cognition, Normal Reflexes Psychiatric: Normal Affect, Normal Mood Skin Exam: Warm, Dry, Intact, Normal Color, No Rash Lymphatic: No Adenopathy EKG INTERPRETATION EKG Date: 10/16/19 Time: 00:45 Rhythm: Other QRS: RBBB ST-T: Depressed (Under branch block) Course - Vital Signs Last Recorded V/S: Last Vital Signs Temp 97.4 F 10/16/19 22:47 Pulse 76 10/16/19 23:32 Resp 44 H 10/16/19 23:32 BP 109/45 L 10/16/19 23:32 Pulse Ox 94 L 10/16/19 23:32 - Orders/Labs/Meds Orders: Active Orders 24 hr Category Date Time Status UA RFX VICTOR MANUEL AND CULT IF INDIC [URIN] Stat Lab 10/16/19 23:06 Ordered Insulin Regular, Human [NovoLIN R] 100 unit Med 10/16/19 23:15 Active Sodium Chloride 0.9% [Normal Saline] 99 ml IV TITRATE Do Not Administer Enoxaparin/Lovenox [AST] Stat Oth 10/16/19 23:43 Ordered Medication Orders Insulin Human Regular 100 unit (/ Sodium Chloride) 100 mls @ 6.5 mls/hr IV TITRATE AMAN; Protocol Labs: Laboratory Tests 10/16/19 10/16/19 10/16/19 Range/Units 22:25 22:25 22:25 WBC 11.78 H (4.0-11.0) K/uL RBC 3.45 L (4.50-5.90) M/uL Hgb 10.9 L (13.0-17.0) g/dL Hct 35.6 L (38.0-50.0) % MCV 103.2 H (80.0-98.0) fL MCH 31.6 (27.0-32.0) pg MCHC 30.6 L (31.0-37.0) g/dL RDW Std Deviation 56.7 (28.0-62.0) fl RDW Coeff of Jabier 15 (11.0-15.0) % Plt Count 320 (150-400) K/uL MPV 11.10 (7.40-12.00) fL Nucleated RBC % 0.0 /100WBC Nucleated RBCs # 0 K/uL VBG pH (7.31-7.41) VBG pCO2 (35-45) mmHG VBG pO2 (30-40) mmHG VBG HCO3 (22-30) mEq/L VBG Total CO2 (41-51) mmol/L VBG Base Excess (-3.0-3.0) Lactate 4.2 H* (0.20-2.00) mmol/L Sodium 129 L (136-148) mmol/L Potassium 5.8 H (3.5-5.1) mmol/L Chloride 91 L (98-107) mmol/L Carbon Dioxide 7.1 L (21.0-32.0) mmol/L BUN 46 H (7.0-18.0) mg/dL Creatinine 2.5 H (0.8-1.3) mg/dL Est Cr Clr Drug Dosing TNP Estimated GFR (MDRD) 24.6 ml/min Glucose 701 H* (74-106) mg/dL Calcium 8.4 L (8.5-10.1) mg/dL Total Bilirubin 0.7 (0.2-1.0) mg/dL AST 26 (15-37) IU/L ALT 33 (14-63) IU/L Alkaline Phosphatase 154 H (46-116) U/L Troponin I (0.000-0.056) ng/mL B-Natriuretic Peptide (<100) PG/ML Total Protein 6.9 (6.4-8.2) g/dL Albumin 2.7 L (3.4-5.0) g/dL Globulin 4.2 H (2.6-4.0) g/dL Albumin/Globulin Ratio 0.6 L (0.9-1.6) 10/16/19 10/16/19 10/16/19 Range/Units 22:25 22:25 22:25 WBC (4.0-11.0) K/uL RBC (4.50-5.90) M/uL Hgb (13.0-17.0) g/dL Hct (38.0-50.0) % MCV (80.0-98.0) fL MCH (27.0-32.0) pg MCHC (31.0-37.0) g/dL RDW Std Deviation (28.0-62.0) fl RDW Coeff of Jabier (11.0-15.0) % Plt Count (150-400) K/uL MPV (7.40-12.00) fL Nucleated RBC % /100WBC Nucleated RBCs # K/uL VBG pH 7.07 L (7.31-7.41) VBG pCO2 22 L (35-45) mmHG VBG pO2 66 H (30-40) mmHG VBG HCO3 6 L (22-30) mEq/L VBG Total CO2 6 L (41-51) mmol/L VBG Base Excess -22.3 L (-3.0-3.0) Lactate (0.20-2.00) mmol/L Sodium (136-148) mmol/L Potassium (3.5-5.1) mmol/L Chloride (98-107) mmol/L Carbon Dioxide (21.0-32.0) mmol/L BUN (7.0-18.0) mg/dL Creatinine (0.8-1.3) mg/dL Est Cr Clr Drug Dosing Estimated GFR (MDRD) ml/min Glucose (74-106) mg/dL Calcium (8.5-10.1) mg/dL Total Bilirubin (0.2-1.0) mg/dL AST (15-37) IU/L ALT (14-63) IU/L Alkaline Phosphatase (46-116) U/L Troponin I 0.562 H* (0.000-0.056) ng/mL B-Natriuretic Peptide 1700 H (<100) PG/ML Total Protein (6.4-8.2) g/dL Albumin (3.4-5.0) g/dL Globulin (2.6-4.0) g/dL Albumin/Globulin Ratio (0.9-1.6) Meds: Medications Generic Name Dose Route Start Last Admin Trade Name Freq PRN Reason Stop Dose Admin Insulin Human Regular 100 unit 100 mls @ 6.5 mls/hr 10/16/19 23:15 / Sodium Chloride IV TITRATE AMAN Protocol Discontinued Medications Generic Name Dose Route Start Last Admin Trade Name Freq PRN Reason Stop Dose Admin Enoxaparin Sodium 65 mg 10/16/19 23:45 10/16/19 23:49 Lovenox 1 mg/kg (65 mg) 10/16/19 23:46 65 mg SUBCUT Administration ONETIME ONE Sodium Chloride 1,000 mls @ 999 mls/hr 10/16/19 22:33 10/16/19 23:30 Normal Saline IV 10/16/19 23:33 999 mls/hr .Bolus ONE Administration Insulin Human Regular 10 unit 10/16/19 23:14 10/16/19 23:29 Novolin R IVPUSH 10/16/19 23:15 10 units ONETIME ONE Administration Protocol Departure - Departure Time of Disposition: 00:46 Disposition: DC/Tfer to Acute Hospital 02 Condition: Fair, Critical Clinical Impression: Non-STEMI (non-ST elevated myocardial infarction) DKA (diabetic ketoacidoses) Qualifiers: Diabetes mellitus type: type 1 Diabetes mellitus complication detail: without coma Qualified Code(s): E10.10 - Type 1 diabetes mellitus with ketoacidosis without coma - Discharge Information *PRESCRIPTION DRUG MONITORING PROGRAM REVIEWED*: No (Accepted by Dr. Donohue) Referrals: [facility] [Primary Care Provider] - Forms: ED Department Discharge Sepsis Event Note - Evaluation Sepsis Screening Result: No Definite Risk - Focused Exam Vital Signs: Vital Signs Temp Pulse Resp BP Pulse Ox 10/16/19 23:32 76 44 H 109/45 L 94 L 10/16/19 22:47 97.4 F 85 40 H 116/46 L 83 L Date Exam was Performed: 10/16/19 Time Exam was Performed: 23:52 - My Orders Last 24 Hours: My Active Orders 10/16/19 23:06 UA RFX VICTOR MANUEL AND CULT IF INDIC [URIN] Stat 10/16/19 23:15 Insulin Regular, Human [NovoLIN R] 100 unit Sodium Chloride 0.9% [Normal Saline] 99 ml IV TITRATE 10/16/19 23:43 Do Not Administer Enoxaparin/Lovenox [AST] Stat - Assessment/Plan Last 24 Hours: My Active Orders 10/16/19 23:06 UA RFX VICTOR MANUEL AND CULT IF INDIC [URIN] Stat 10/16/19 23:15 Insulin Regular, Human [NovoLIN R] 100 unit Sodium Chloride 0.9% [Normal Saline] 99 ml IV TITRATE 10/16/19 23:43 Do Not Administer Enoxaparin/Lovenox [AST] Stat
[2019-10-16 23:07] LABS: BLOOD UREA NITROGEN,BUN 46 mg/dL (7.0-18.0); CARBON DIOXIDE,CO2 7.1 mmol/L (21.0-32.0); CHLORIDE,CL 91 mmol/L (98-107); POTASSIUM,K 5.8 mmol/L (3.5-5.1); SODIUM,NA 129 mmol/L (136-148)
[2019-10-16 23:08] LABS: GLUCOSE RANDOM 701 mg/dL (74-106)
[2019-10-16] MEDS ORDERED: Insulin Regular, Human 100 Units/ML 10 ML Vial IVPUSH ONE (23:14)
--- NOTE | 2019-10-16 23:37 | CR ---
Indication: Shortness of breath. Technique: A single AP portable view of the chest. Comparison: October 08, 2019. Findings: Heart is enlarged. Median sternotomy wires are identified. Diffusely increased interstitial opacities are identified throughout both lungs. This is unchanged. Impression: Stable chest x-ray Dictated by Sera Ken MD @ Oct 16 2019 11:35PM Signed by Dr. Sera Ken @ Oct 16 2019 11:35PM
[2019-10-16] MEDS ORDERED: Enoxaparin 100 MG/1 ML Syringe SUBCUT ONE (23:45)
== END 2019-10-17 01:00 ==
LOC: MW.ED 22:27
DX: I21.4 Non-ST elevation (NSTEMI) myocardial infarction (principal); E10.10 Type 1 diabetes mellitus with ketoacidosis without coma
CPT/HCPCS: 36415; 71045; 80053; 82803; 82947; 83605; 83880; 84484; 85027; 87804; 93005; 96360; 96372; 99285; J1650; J1815; J7030; J7050